=== PATIENT | female | born 2005 | race Caucasian/White ===

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

== ENCOUNTER 2024-04-01 13:20 | Emergency (ER) | payer MEDICAID | END 2024-04-01 14:36 | disposition home or self-care (01) | LOC: FB.ED 13:20 | DX: S60.221A Contusion of right hand, initial encounter (principal); Z91.018 Allergy to other foods; W22.8XXA Striking against or struck by other objects, initial encounter; Y93.89 Activity, other specified | CPT/HCPCS: 73130-RT; 99283 ==

== ENCOUNTER 2024-05-08 23:01 | Emergency (ER) | payer MEDICAID ==
[2024-05-08 23:31] LABS: BILIRUBIN,URINE NEGATIVE (NEGATIVE); GLUCOSE,URINE NORMAL (NORMAL); KETONES,URINE 15 mg/dL (NEGATIVE); LEUKOCYTE ESTERASE,URINE LARGE (NEGATIVE); NITRITE,URINE NEGATIVE (NEGATIVE); OCCULT BLOOD,URINE LARGE (NEGATIVE); PROTEIN,URINE 30 mg/dL (NEGATIVE); UROBILINOGEN,URINE NORMAL (NEGATIVE)
[2024-05-08 23:32] LABS: APPEARANCE,URINE CLOUDY (CLEAR); COLOR,URINE YELLOW (YELLOW)
[2024-05-08 23:37] LABS: WBC,URINE >100 (0-5)
[2024-05-08 23:38] LABS: BACTERIA,URINE MODERATE (NS); EPITHELIAL CELLS,URINE FEW; RBC,URINE 50-75 (0-5)
[2024-05-09] MEDS: cefTRIAXone 1 GM Vial IM ONE (00:39)
== END 2024-05-09 00:45 | disposition home or self-care (01) ==
LOC: FB.ED 23:01
DX: N39.0 Urinary tract infection, site not specified (principal); Z91.011 Allergy to milk products; Z79.899 Other long term (current) drug therapy
CPT/HCPCS: 81001; 87086; 96372; 99283; 99284; J0696

== ENCOUNTER 2024-05-19 04:44 | Emergency (ER) | payer MEDICAID ==
[2024-05-19] MEDS: Ketorolac 30 MG/ML SDV IM ONE (05:04)
== END 2024-05-19 05:37 | disposition home or self-care (01) ==
LOC: FB.ED 04:44
DX: S93.402A Sprain of unspecified ligament of left ankle, initial encounter (principal); F17.200 Nicotine dependence, unspecified, uncomplicated; Z79.899 Other long term (current) drug therapy; Z91.011 Allergy to milk products; Y93.39 Activity, other involving climbing, rappelling and jumping off
CPT/HCPCS: 73610-LT; 73630-LT; 96372; 99283; J1885

== ENCOUNTER 2024-06-09 00:15 | Emergency (ER) | payer MEDICAID ==
[2024-06-09] MEDS ORDERED: Amoxicillin/Clavulanate K 875-125 MG Tab PO ONE (00:16)
== END 2024-06-09 00:35 | disposition home or self-care (01) ==
LOC: FB.ED 00:15
DX: S50.811A Abrasion of right forearm, initial encounter (principal); Z91.011 Allergy to milk products; Z79.899 Other long term (current) drug therapy; W55.03XA Scratched by cat, initial encounter
CPT/HCPCS: 99282; A9270; 99283

== ENCOUNTER 2024-07-24 19:19 | Emergency (ER) | payer MEDICAID ==
[2024-07-24] MEDS ORDERED: Ondansetron 4 MG Tab.DIS PO ONE (19:20)
[2024-07-24] MEDS ORDERED: Ondansetron 4 MG/2 ML SDV IVPUSH ONE (19:24)
[2024-07-24] MEDS ORDERED: Sodium Chloride 0.9% 10 ML Syringe FLUSH PRN (19:24)
[2024-07-24] MEDS ORDERED: Pantoprazole 40 MG Vial IVPUSH ONE (19:25)
[2024-07-24] MEDS ORDERED: Sodium Chloride 0.9% 1,000 ML IV SCH (19:30)
[2024-07-24 19:46] LABS: BASOPHILS PERCENT AUTO 0.5 % (0.2-1.5); EOSINOPHILS PERCENT AUTO 0.2 % (0.6-8.1); HEMATOCRIT 40.4 % (34.2-48.2); HEMOGLOBIN 14.4 g/dL (11.4-15.5); LYMPHOCYTES ABSOLUTE AUTO 1.3 x10-3/uL (1.0-4.4); LYMPHOCYTES PERCENT AUTO 18.3 % (18.4-52.1); MEAN CORPUSCULAR HEMOGLOBIN 30.9 pg (23.9-33.9); MEAN CORPUSCULAR HGB CONC 35.6 g/dL (31.9-34.8); MEAN CORPUSCULAR VOLUME 86.8 fL (76.7-100.5); MEAN PLATELET VOLUME 7.2 fL (7.1-12.4); MONOCYTES ABSOLUTE AUTO 0.4 x10-3/uL (0.3-1.0); MONOCYTES PERCENT AUTO 5.3 % (4.4-15.7); NEUTROPHILS ABSOLUTE AUTO 5.5 x10-3/uL (1.5-6.3); NEUTROPHILS PERCENT AUTO 75.7 % (30.8-76.2); PLATELET COUNT,PLT 266 x10(3)uL (151-488); RED BLOOD CELL COUNT 4.65 x10(6)uL (3.60-5.20); RED CELL DISTRIBUTION WIDTH 13.4 % (12.3-16.5); WHITE BLOOD CELL COUNT,WBC 7.3 x10-3/uL (3.0-10.3)
[2024-07-24 19:52] LABS: BLOOD UREA NITROGEN,BUN 13 mg/dL (7-18); BUN/CREATININE RATIO 16.3 (9-20); CALCIUM 9.1 mg/dL (8.6-10.2); CARBON DIOXIDE,CO2 28 mmol/L (21-32); CHLORIDE,CL 105 mmol/L (100-110); CREATININE 0.8 mg/dL (0.55-1.02); EST CRCL DRUG DOSING (CG) 109.08 mL/min; ESTIMATED GFR 108 mL/min (>60); GLUCOSE RANDOM 116 mg/dL (80-116); POTASSIUM,K 3.7 mmol/L (3.5-5.3); SODIUM,NA 142 mmol/L (135-145)
[2024-07-24 19:59] LABS: A/G RATIO 1.5; ALANINE AMINOTRANSFERASE,ALT 27 U/L (12-36); ALBUMIN 4.2 g/dL (3.5-5.2); ALKALINE PHOSPHATASE 90 IU/L (56-112); ASPARTATE AMNIOTRANSFERASE,AST 19 IU/L (5-25)
== END 2024-07-24 20:14 | disposition home or self-care (01) ==
LOC: FB.ED 19:19
DX: K29.20 Alcoholic gastritis without bleeding (principal); F10.10 Alcohol abuse, uncomplicated; Z91.011 Allergy to milk products; Z79.899 Other long term (current) drug therapy; Y90.0 Blood alcohol level of less than 20 mg/100 ml
CPT/HCPCS: 36415; 80053; 80307; 85025; 99284; Q0162